=== PATIENT | female | born 1995 | race Two or more races ===

== ENCOUNTER → 2017-10-15 | Emergency (ER) | payer OTHER ==
[~2017-10-15] VITALS: Ht 154.9 cm; Wt 68.5 kg
[~2017-10-15] MED LIST: IPRAT-ALBUT 0.5-3 ML IH; PREPLUS CA-FE1 EACH; ZITHROMAX500 MG PO
== END | disposition home or self-care (01) ==
LOC: ER 22:02
DX: J06.9 Acute upper respiratory infection, unspecified (principal)

== ENCOUNTER → 2017-11-22 | Emergency (ER) | payer OTHER ==
[~2017-11-22] VITALS: Ht 154.9 cm; Wt 67.1 kg
== END | disposition home or self-care (01) ==
LOC: ER 11:43
DX: O26.891 Other specified pregnancy related conditions, first trimester (principal); Z34.01 Encounter for supervision of normal first pregnancy, first trimester

== ENCOUNTER 2018-01-27 08:29 | Emergency (ER) | payer OTHER ==
[~2018-01-27] VITALS: Ht 154.9 cm; Wt 70.3 kg
[2018-01-27] MEDS ORDERED: ZOFRAN ODT4 MG PO (13:22)
[2018-01-27] MEDS ORDERED: PEPCID AC20 MG PO (13:22)
== END 2018-01-27 13:44 | disposition home or self-care (01) ==
LOC: ER 08:29
DX: O26.892 Other specified pregnancy related conditions, second trimester (principal); K29.60 Other gastritis without bleeding; Z34.01 Encounter for supervision of normal first pregnancy, first trimester

== ENCOUNTER 2018-03-16 02:35 | Outpatient (CLI) | payer OTHER ==
[~2018-03-16 02:35] MED LIST changes: +PEPCID AC20 MG PO; +ZOFRAN ODT4 MG PO
== END 2018-03-16 14:53 | disposition home or self-care (01) ==
LOC: OBS/DEL 02:35
DX: O26.893 Other specified pregnancy related conditions, third trimester (principal); R10.13 Epigastric pain; Z34.83 Encounter for supervision of other normal pregnancy, third trimester

== ENCOUNTER 2018-05-28 07:57 | Inpatient (IN) | payer OTHER ==
[~2018-05-28] VITALS: Ht 157.5 cm; Wt 3.2 kg
[2018-05-28] MEDS ORDERED: VALTREX1000 MG PO (14:14)
[2018-05-28] MEDS ORDERED: PRENATAL TABLE1 EACH PO (14:14)
== END 2018-05-31 18:34 | DRG 766 ==
LOC: OB/GYN 07:57 → LDR 07:57 → OB/GYN 05-29 06:35
PROVIDERS: Obstetrics & Gynecology
PROC: 3E033VJ Introduction of Other Hormone into Peripheral Vein, Percutaneous Approach (ICD-10-PCS; 2018-05-29)
PROC: 4A033R1 Measurement of Arterial Saturation, Peripheral, Percutaneous Approach (ICD-10-PCS; 2018-05-29)
PROC: 4A1HXCZ Monitoring of Products of Conception, Cardiac Rate, External Approach (ICD-10-PCS; 2018-05-29)
PROC: 10D00Z1 Extraction of Products of Conception, Low, Open Approach (ICD-10-PCS; principal; 2018-05-29 07:00)
DX: O61.0 Failed medical induction of labor (principal); Z3A.38 38 weeks gestation of pregnancy; Z37.0 Single live birth

== ENCOUNTER 2018-11-15 09:30 | Emergency (ER) | payer OTHER ==
[~2018-11-15] VITALS: Ht 157.5 cm; Wt 68.9 kg
[~2018-11-15 09:30] MED LIST changes: +PRENATAL TABLE1 EACH PO; +VALTREX1000 MG PO
[2018-11-15] MEDS ORDERED: NORFLEX100MG PO (12:31)
== END 2018-11-15 12:48 | disposition home or self-care (01) ==
LOC: ER 09:30
DX: S30.0XXA Contusion of lower back and pelvis, initial encounter (principal); W18.39XA Other fall on same level, initial encounter; Y93.89 Activity, other specified; Y92.69 Other specified industrial and construction area as the place of occurrence of the external cause; Y99.8 Other external cause status

== ENCOUNTER → 2021-02-02 | Outpatient (CLI) | payer OTHER ==
[~2021-02-02] MED LIST changes: +NORFLEX100MG PO
== END | disposition home or self-care (01) ==
LOC: PPH VACUNA
DX: Z23 Encounter for immunization (principal)